=== PATIENT | female | born 1965 | race Caucasian/White ===

== ENCOUNTER 2018-09-17 16:25 | Outpatient (CLI) | payer OTHER ==
[~2018-09-17 16:25] MED LIST: PERCOCET 5/3251 TAB PO; SYNTHROID100 MCG PO
== END 2018-09-17 16:33 | disposition home or self-care (01) ==
LOC: LAB 16:25
DX: R31.29 Other microscopic hematuria (principal)

== ENCOUNTER 2018-09-18 07:30 | Outpatient (CLI) | payer OTHER | END 2018-09-18 07:37 | disposition home or self-care (01) | LOC: LAB 07:30 | DX: R31.21 Asymptomatic microscopic hematuria (principal) ==

== ENCOUNTER 2018-09-21 07:55 | Outpatient (CLI) | payer OTHER | END 2018-09-21 08:05 | disposition home or self-care (01) | LOC: TOM 07:55 | DX: R31.21 Asymptomatic microscopic hematuria (principal) ==